=== PATIENT | female | born 1985 | race Caucasian/White ===

== ENCOUNTER 2021-03-13 17:12 | Emergency (ER) | payer SELFPAY ==
[~2021-03-13] VITALS: Ht 175.3 cm; Wt 91.0 kg
[2021-03-13 18:45] LABS: BASOPHILS % 0.8 % (0.0-2.0); EOSINOPHILS % 0.9 % (0.0-5.0); HEMATOCRIT. 43.6 % (36.0-48.0); HEMOGLOBIN. 14.6 g/dL (12.0-16.0); LYMPHOCYTES % 21.9 % (20.0-50.0); MEAN CORPUSCULAR VOLUME 89.7 fL (81.0-99.0); MEAN PLATELET VOLUME 7.6 fl (7.4-10.4); MONOCYTES % 5.9 % (2.0-8.0); NEUTROPHILS % 70.5 % (40.0-76.0); PLATELET 299 x1000/uL (130-400); RED BLOOD CELL COUNT 4.86 mill/uL (4.2-5.4)
[2021-03-13 18:50] LABS: CHLORIDE 103 mEq/L (98-107)
[2021-03-13 19:02] LABS: ETHANOL BLOOD 289 mg/dL
[2021-03-13 19:07] LABS: HCG SCREEN NEGATIVE
[2021-03-14 01:25] VITALS: BP 127/83
== END 2021-03-14 01:40 | disposition home or self-care (01) ==
LOC: ER 17:12
DX: F11.10 Opioid abuse, uncomplicated (principal); F10.10 Alcohol abuse, uncomplicated; Z98.890 Other specified postprocedural states; Y90.8 Blood alcohol level of 240 mg/100 ml or more
CPT/HCPCS: 36415; 80053; 80320; 81025; 84703; 85025; 99285; G0480